=== PATIENT | female | born 1930 | race African-American/Black ===

== ENCOUNTER 2016-12-28 11:04 | Emergency (ER) | payer OTHER ==
[~2016-12-28] VITALS: Ht 149.9 cm; Wt 54.4 kg
[~2016-12-28 11:04] MED LIST: ARICEPT10 M1 PO; LEVOXYL50 MCG PO; NAPROSYN375 MG PO; NORVASC5 M1 PO; TYLENOL #31 TAB PO; XALATAN2.5 ML OPH
[2016-12-28 12:04] LABS: ABSOLUTE BASOPHIL COUNT 0 /CUMM (0.0-0.2); ABSOLUTE EOSINOPHIL COUNT 0.4 /CUMM (0.0-0.7); ABSOLUTE GRANULOCYTE CT 4.5 /CUMM (1.4-6.5); ABSOLUTE LYMPH COUNT 1.1 /CUMM (1.2-3.4); ABSOLUTE MONOCYTE COUNT 0.6 /CUMM (0.10-0.60); BASOPHIL % 0.3 % (0.0-2.0); EOSINOPHIL % 5.7 % (0-5); GRANULOCYTE % 67.9 % (42.2-75.2); HEMATOCRIT 39.7 % (37-47); MEAN CORPUSCULAR HGB 29.1 PG (27.0-31.0); MEAN CORPUSCULAR HGB CONC 32.7 G/DL (33.0-37.0); MEAN CORPUSCULAR VOLUME 89.1 FL (81.0-99.0); MEAN PLATELET VOLUME 10.4 FL (7.4-10.4); PLATELET COUNT 142 /CUMM (130-400); RBC DISTRIBUTION WIDTH 13.5 % (11.5-14.5); RED BLOOD CELL CT 4.46 /CUMM (4.20-5.40); WHITE BLOOD CELL COUNT 6.7 /CUMM (4.8-10.8)
--- NOTE | 2016-12-28 12:04 | ED GI/GU/ABDOMINAL COMPLAINT ---
History of Present Illness General Chief Complaint: General Adult Stated Complaint: DAUGHER STATES PT TOOK OVERDOSE OF TYLENOL Source: patient Exam Limitations: no limitations Vital Signs & Intake/Output Vital Signs & Intake/Output Vital Signs Date Time Temp Pulse Resp B/P B/P Pulse O2 O2 Flow FiO2 Mean Ox Delivery Rate 12/28 1150 97 12/28 1109 96.7 60 16 114/74 97 Room Air Allergies Coded Allergies: Penicillins (UNKNOWN 12/28/16) Reconcile Medications Amlodipine (Norvasc 5MG Tab) 5 MG TABLET 1 TAB PO DAILY HTN (Reported) Donepezil Hyrochloride (Aricept 5MG Tab) 5 MG TABLET 1 TAB PO QPM DEMENTIA ( Reported) Latanoprost (Xalatan 0.005% 2.5 Ml) 0.005 % DROPS 1 GTT OPH QPM EYE (Reported ) Levothyroxine Sodium 50 MCG TABLET 1 TAB PO QAM HYPOTHYROID (Reported) Meloxicam (Mobic) 15 MG TABLET 1 TAB PO DAILY PRN PAIN Naproxen (Naprosyn) 375 MG TABLET 1 TAB PO BID PRN PAIN with food Triage Note: PT HAS DEMENTIA AND DGT THINKS SHE TOOK A BUNCH OF TYLENOL BECAUSE SHE HAS ARTHRTIS IN HER ARM. Triage Nurses Notes Reviewed? yes ? N Is pt currently ? No HPI: This patient is an 86-year-old female with past medical history including dementia who is brought into the emergency department today by her daughter for evaluation of possible Tylenol overdose and abdominal pain. The patient's daughter reported that she thinks that last night this patient took, "a lot of Tylenol because her arm hurt where the arthritis is." She reported that she did not witness the patient taking Tylenol and does not know if the bottle was open or closed prior to last night. She reported that she thinks that she took too many Tylenol because this morning she was complaining of abdominal pain. The patient is denying any abdominal pain at this time. When I asked the daughter what the patient told her about the abdominal pain this morning, she reported, "I don't remember. She told me about the abdominal pain and described to me this morning, but I don't remember what she said." She told me that she gave the patient 2 capsules of charcoal and baking soda to try to get the patient to vomit, but the patient did not vomit. The patient has not had any fevers or diarrhea. The patient is denying any chest pain or difficulty breathing. She reported, "I think I just have a nervous stomach." (MIKAELA JUAN PA-C) Past History Travel History Traveled to [place] past 21 day No Medical History Any Pertinent Medical History? 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 No (MIKAELA JUAN PA-C) Review of Systems Review of Systems Constitutional: Reports: no symptoms. EENTM: Reports: no symptoms. Respiratory: Reports: no symptoms. Cardiovascular: Reports: no symptoms. GI: Reports: see HPI. Genitourinary: Reports: no symptoms. Musculoskeletal: Reports: see HPI. Skin: Reports: no symptoms. Neurological/Psychological: Reports: no symptoms. All Other Systems: Reviewed and Negative (MIKAELA JUAN PA-C) Physical Exam Physical Exam Gastrointestinal: normal bowel sounds, soft, no organomegaly, NONDISTENDED.EPIGASTRIC TENDERNESS. nO REBOUND OR GUARDING. nO mCbURNEY'S POINT TENDERNESS. nEGATIVE Calixto SIGN. nO MASSES APPRECIATED Comments: Well-developed well-nourished person in no acute distress HEENT: Normal EENT exam, head normocephalic, moist mucous membranes Pupils equally round and reactive to light. Neck: Supple, no lymphadenopathy Back: Normal inspection Cardiovascular: Regular rate and rhythm with no murmurs, rubs, or gallops Respiratory: Chest nontender. No respiratory distress. Breath sounds clear to auscultation bilaterally Extremity: Normal equal pulses Neuro: Alert oriented x3, cranial nerves II through XII grossly intact. Skin: No appreciable rash on exposed skin, skin is warm and dry. Psych: Mood and affect is normal Core Measures ACS in differential dx? Yes Severe Sepsis Present: No Septic Shock Present: No (MIKAELA JUAN PA-C) Progress Differential Diagnosis: AAA, AMI, appendicitis, biliary colic, bowel obstruction , colon cancer, cholecystitis, diverticulitis, gastritis, hepatitis, ischemic bowel, inflamm bowel dis, kidney stone, pancreatitis, PID/cervicitis, PUD/GERD, perforated viscous, UTI/pyelo Diagnostic Imaging: Viewed by Me: CT Scan. Discussed w/RAD: CT Scan. Radiology Impression: PATIENT: JOSE G BARROW PRESENT AGE: 86 PATIENT ACCOUNT NO: [id number] : 29 LOCATION: [facility] ORDERING PHYSICIAN: MIKAELA JUAN PA-C SERVICE DATE: 12/28/16 EXAM TYPE: CAT - CT ABD & PELVIS W/O IV CONTRAS EXAMINATION: CT ABDOMEN AND PELVIS WITHOUT CONTRAST CLINICAL INFORMATION: Abdominal pain. Evaluate for acute intra- abdominal process. COMPARISON: CT of abdomen and pelvis from 01/14/2014 TECHNIQUE: Multidetector volumetric imaging was performed from the superior aspect of the liver through the pubic symphysis. Sagittal and coronal reformatted images were obtained on the technologist's workstation. DLP: 272 mGy -cm FINDINGS: LUNG BASES: No acute findings in the examined lung bases. A tubular shaped, branching opacity in the lateral segment of the right middle lobe extending to the major fissure was not included in the [id number] on 08/2014. This has the appearance of mucus plugging within a dilated bronchus. Minimal atelectasis is present in the dependent aspect of each lower lobe. Mild atherosclerotic calcification of coronary arteries and thoracic aorta. No pericardial or pleural effusion. LIVER, GALLBLADDER, AND BILIARY TREE: The liver is normal in size, shape, and attenuation. No focal hepatic lesion or biliary ductal dilatation. The gallbladder is unremarkable with no evidence of radiopaque gallstones, gallbladder wall thickening, or pericholecystic inflammatory changes. PANCREAS: Unremarkable. SPLEEN: Unremarkable. ADRENAL GLANDS: Unremarkable. KIDNEYS AND URETERS: Kidneys have normal size, cortical thickness and attenuation. No evidence of nephrolithiasis or hydronephrosis. Note that there is developmental lack of medial rotation of the right kidney. The ureters are normal in caliber. BLADDER: Unremarkable. GASTROINTESTINAL TRACT : Loops of bowel are normal in caliber. Appendix is normal. No pericolonic fat stranding or focal bowel wall thickening. No ascites or pneumoperitoneum. ABDOMINAL WALL: Small fat-containing umbilical hernia is unchanged compared to 01/14/2014. Postsurgical scarring in the midline of the lower abdominal wall. LYMPH NODES: No pathologic sized lymph nodes within the abdomen or pelvis. VASCULAR: Mild atherosclerotic calcification of the abdominal aorta and iliac arteries without aneurysm. PELVIC VISCERA: Status post hysterectomy. No evidence of pelvic soft tissue mass or free fluid. 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 No acute fracture or malalignment in the examined spine. No aggressive osseous lesions. Apparent chronic hamstring tendinosis and enthesopathy at the ischial tuberosities. Chondrocalcinosis at the degenerated pubic symphysis. Mild osteoarthritis of the hips. IMPRESSION: No acute imaging abnormalities in the abdomen or pelvis compared to 01/14/2014. No evidence of urolithiasis or urinary tract obstruction. Appendix is normal. DICTATED BY: GEMA ARITA MD DATE/TIME DICTATED:12/28/161327 LIGHTING DESIGNER:ARCENIO DATE/TIME TRANSCRIBED:1327 CONFIDENTIAL, DO NOT COPY WITHOUT APPROPRIATE AUTHORIZATION. < Electronically signed in Other Vendor System> SIGNED BY: GEMA ARITA MD 12/28/16 1341 Initial ED EKG: none Comments: 12/28/2016 12:36:00 PM: Dr. Montejo was at the patient's bedside for face to face evaluation. I updated the patient and her daughter on the results of the laboratory studies. No acetaminophen or salicylate levels detected in the blood. The patient's daughter is requesting a CT scan due to the patient stated abdominal pain earlier. (DRAKE NICHOLSON,MIKAELA) Plan of Care: Orders Procedure Date/time Status THYROID STIMULATING HORMONE 12/28 1140 Complete ACETOMINOPHEN 12/28 1130 Complete SALICYLATE 12/28 1130 Complete COMPREHENSIVE METABOLIC PANEL 12/28 1130 Complete CBC WITHOUT DIFFERENTIAL 12/28 1130 Complete Laboratory Tests 12/28/16 1148: TSH Cancelled 12/28/16 1140: Anion Gap 11, Estimated GFR > 60, BUN/Creatinine Ratio 13.8, Glucose 95, Calcium 9.5, Total Bilirubin 0.6, AST 17, ALT 21, Alkaline Phosphatase 65, Total Protein 7.2, Albumin 3.7, Globulin 3.5, Albumin/Globulin Ratio 1.1, TSH 1.700, CBC w Diff NO MAN DIFF REQ, RBC 4.46, MCV 89.1, MCH 29.1, RDW 13.5, MPV 10.4, Gran % 67.9, Lymphocytes % 16.4 L, Monocytes % 9.7 H, Eosinophils % 5.7 H, Basophils % 0.3, Absolute Granulocytes 4.5, Absolute Lymphocytes 1.1 L, Absolute Monocytes 0.6, Absolute Eosinophils 0.4, Absolute Basophils 0, PUBS MCHC 32.7 L , Salicylates < 1.0, Acetaminophen < 10.0 L Departure Departure Disposition: HOME OR SELF CARE Condition: Stable Clinical Impression Primary Impression: Abdominal pain Qualifiers: Abdominal location: unspecified location Qualified Code: R10.9 - Unspecified abdominal pain Referrals: SUDHA SALGADO,JAMA RANDALL MD,FOSTER Alcantar (PCP/Family) Additional Instructions: Take medication for pain as prescribed. Do not mix this medication with another anti-inflammatory such as ibuprofen, Advil, Aleve, or naproxen. Please call to schedule a follow-up appointment with your primary care physician. Return for any worsening symptoms or concerns. Departure Forms: Customer Survey General Discharge Information Prescriptions: Current Visit Scripts Meloxicam (Mobic) 1 TAB PO DAILY PRN PAIN #10 TAB (DRAKE NICHOLSON,MIKAELA) PA/LOOKBACK COORDINATOR Co-Sign Statement Statement: ED Attending supervision documentation- [X] I saw and evaluated the patient. I have also reviewed all the pertinent lab results and diagnostic results. I agree with the findings and the plan of care as documented in the PA's/LOOKBACK COORDINATOR's documentation. [] I have reviewed the ED Record and agree with the PA's/LOOKBACK COORDINATOR's documentation. [] Additions or exceptions (if any) to the PAs/LOOKBACK COORDINATOR's note and plan are summarized below: [] (RO SALGADO,RACHELLE Wesley)
--- NOTE | 2016-12-28 13:41 | CT SCAN REPORT ---
EXAMINATION: CT ABDOMEN AND PELVIS WITHOUT CONTRAST CLINICAL INFORMATION: Abdominal pain. Evaluate for acute intra-abdominal process. COMPARISON: CT of abdomen and pelvis from 01/14/2014 TECHNIQUE: Multidetector volumetric imaging was performed from the superior aspect of the liver through the pubic symphysis. Sagittal and coronal reformatted images were obtained on the technologist's workstation. DLP: 272 mGy-cm FINDINGS: LUNG BASES: No acute findings in the examined lung bases. A tubular shaped, branching opacity in the lateral segment of the right middle lobe extending to the major fissure was not included in the [id number] on 01/14/2014. This has the appearance of mucus plugging within a dilated bronchus. Minimal atelectasis is present in the dependent aspect of each lower lobe. Mild atherosclerotic calcification of coronary arteries and thoracic aorta. No pericardial or pleural effusion. LIVER, GALLBLADDER, AND BILIARY TREE: The liver is normal in size, shape, and attenuation. No focal hepatic lesion or biliary ductal dilatation. The gallbladder is unremarkable with no evidence of radiopaque gallstones, gallbladder wall thickening, or pericholecystic inflammatory changes. PANCREAS: Unremarkable. SPLEEN: Unremarkable. ADRENAL GLANDS: Unremarkable. KIDNEYS AND URETERS: Kidneys have normal size, cortical thickness and attenuation. No evidence of nephrolithiasis or hydronephrosis. Note that there is developmental lack of medial rotation of the right kidney. The ureters are normal in caliber. BLADDER: Unremarkable. GASTROINTESTINAL TRACT: Loops of bowel are normal in caliber. Appendix is normal. No pericolonic fat stranding or focal bowel wall thickening. No ascites or pneumoperitoneum. ABDOMINAL WALL: Small fat-containing umbilical hernia is unchanged compared to 01/14/2014. Postsurgical scarring in the midline of the lower abdominal wall. LYMPH NODES: No pathologic sized lymph nodes within the abdomen or pelvis. VASCULAR: Mild atherosclerotic calcification of the abdominal aorta and iliac arteries without aneurysm. PELVIC VISCERA: Status post hysterectomy. No evidence of pelvic soft tissue mass or free fluid. 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 No acute fracture or malalignment in the examined spine. No aggressive osseous lesions. Apparent chronic hamstring tendinosis and enthesopathy at the ischial tuberosities. Chondrocalcinosis at the degenerated pubic symphysis. Mild osteoarthritis of the hips. IMPRESSION: No acute imaging abnormalities in the abdomen or pelvis compared to 01/14/2014. No evidence of urolithiasis or urinary tract obstruction. Appendix is normal.
[2016-12-28] MEDS ORDERED: MOBIC15 M1 PO (13:48)
[2016-12-28 14:08] VITALS: BP 149/71
== END 2016-12-28 14:19 ==
LOC: ERH 11:04
PROVIDERS: Physician Assistant Medical
DX: R10.13 Epigastric pain (principal); I10 Essential (primary) hypertension; F03.90 Unspecified dementia, unspecified severity, without behavioral disturbance, psychotic disturbance, mood disturbance, and anxiety
CPT/HCPCS: 74176; 96374; G0480; J0131

== ENCOUNTER 2017-02-18 11:07 | Inpatient (IN) | payer OTHER ==
[~2017-02-18] VITALS: Ht 149.9 cm; Wt 53.5 kg
[~2017-02-18 11:07] MED LIST changes: +MOBIC15 M1 PO
--- NOTE | 2017-02-18 11:26 | ED GENERAL ADULT ---
History of Present Illness General Chief Complaint: Abdominal Pain/Flank Pain Stated Complaint: ABD PAIN,NVD Source: patient Exam Limitations: no limitations Vital Signs & Intake/Output Vital Signs & Intake/Output Vital Signs Date Time Temp Pulse Resp B/P B/P Pulse O2 O2 Flow FiO2 Mean Ox Delivery Rate 02/18 1851 64 16 102/58 97 Room Air 02/18 1732 51 14 92/50 97 Room Air 02/18 1406 97.3 56 18 123/60 96 Room Air 02/18 1253 Room Air 02/18 1159 97.2 50 20 111/56 97 Room Air Allergies Coded Allergies: No Known Allergies (02/18/17) Reconcile Medications Amlodipine Besylate (Norvasc) 5 MG TABLET 1 TAB PO DAILY HTN (Reported) Brimonidine Tartrate/Timolol (Combigan Eye Drops) 0.2 %-0.5 % DROPS 1 DROP OP BID EYE (Reported) Donepezil HCl (Aricept) 10 MG TABLET 1 TAB PO QPM DEMENTIA (Reported) Escitalopram Oxalate 20 MG TABLET 1 TAB PO DAILY DEPRESSION (Reported) Latanoprost (Xalatan) 0.005 % DROPS 1 GTT OPH QPM EYE (Reported) Levothyroxine Sodium (Levoxyl) 50 MCG TABLET 1 TAB PO DAILY AC THYROID ( Reported) Meloxicam (Mobic) 15 MG TABLET 1 TAB PO DAILY PRN PAIN Triage Nurses Notes Reviewed? yes Onset: Abrupt Duration: minute(s): Timing: recent history HPI: 02/18/17 12:19 pm 87-year-old female presents to the emergency department status post episode of abdominal pain and weakness. According to the daughter the patient has a history of dementia. She was at a post office today and learned that a friend had . Suddenly she became nauseous and complained of abdominal pain. The daughter says that she's not been feeling well for the past several days. Her EKG done on arrival revealed sinus bradycardia in the 40s. She was placed on a monitor. Labs were ordered. The onset of the symptoms were abrupt, the duration was just today, the severity is significant; as his symptoms required her to come to the emergency department for care. Past History Medical History Any Pertinent Medical History? 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 No Review of Systems Review of Systems Constitutional: Denies: fever. EENTM: Denies: visual changes. Respiratory: Denies: short of breath. Cardiovascular: Denies: chest pain. GI: Reports: abdominal pain. Genitourinary: Reports: no symptoms. Musculoskeletal: Reports: no symptoms. Skin: Denies: rash. Neurological/Psychological: Reports: dementia. Hematologic/Endocrine: Denies: bruising, bleeding. Physical Exam Physical Exam General Appearance: alert, awake, anxious, mild distress Head: atraumatic, normal appearance Eyes: Bilateral: normal appearance, PERRL, EOMI. Ears, Nose, Throat: normal ENT inspection Neck: normal inspection, supple Respiratory: no respiratory distress Cardiovascular: bradycardia Peripheral Pulses: 3+ brachial (L), 3+ radial (R) Gastrointestinal: non-tender Back: decreased range of motion Extremities: no edema Neurologic/Psych: awake, alert, confused Skin: intact, normal color, warm/dry Core Measures ACS in differential dx? Yes CVA/TIA Diagnosis: No Severe Sepsis Present: No Septic Shock Present: No Progress Differential Diagnoses I considered the following diagnoses in my evaluation of the patient: [Lyme disease, sick sinus syndrome, acute coronary syndrome, adverse drug reaction] Plan of Care: Orders Procedure Date/time Status Heart Healthy Diet 02/19 B Active Admit to inpatient 02/19 1944 Active Vital Signs 02/18 194 Active Code Status 02/18 194 Active TROPONIN LEVEL 02/18 1707 Complete EKG 02/18 1707 Active URINALYSIS 02/18 1503 Complete Add-on Test (ER Only) 02/18 1221 Active THYROID STIMULATING HORMONE 02/18 1145 Complete TOTAL TRIODOTHYROXINE 02/18 1145 Complete THYROXINE 02/18 1145 Complete Telemetry/Biogeographer 02/18 1135 Active TROPONIN LEVEL 02/18 1135 Complete COMPREHENSIVE METABOLIC PANEL 02/18 1135 Complete CBC WITHOUT DIFFERENTIAL 02/18 1135 Complete AMYLASE 02/18 1135 Complete EKG 02/18 1109 Active Laboratory Tests 02/18/17 1726: Troponin I < 0.01 02/18/17 1505: Urine Color YEL, Urine Clarity CLEAR, Urine pH 7.5, Ur Specific [place] 1.010, Urine Protein NEG, Urine Ketones NEG, Urine Nitrite NEG, Urine Bilirubin NEG, Urine Urobilinogen 0.2, Ur Leukocyte Esterase NEG, Ur Microscopic EXAM NOT REQUIRED, Urine Hemoglobin NEG, Urine Glucose NEG 02/18/17 1225: Anion Gap 6, Estimated GFR > 60, BUN/Creatinine Ratio 18.6, Glucose 89, Calcium 8.4, Total Bilirubin 0.4, AST 14, ALT 33, Alkaline Phosphatase 42, Troponin I < 0.01, Total Protein 5.6 L, Albumin 2.8 L, Globulin 2.8, Albumin/Globulin Ratio 1.0 L, Amylase 184 H, TSH 0.340, Thyroxine (T4) 6.6, Total T3 0.90 L 02/18/17 1145: CBC w Diff MAN DIFF ORDERED, RBC 4.03 L, MCV 87.9, MCH 29.2, RDW 13.8, MPV 10.7 H, Gran % 59.6, Lymphocytes % 21.4, Monocytes % 10.5 H, Eosinophils % 8.2 H, Basophils % 0.3, Absolute Granulocytes 3.6, Absolute Lymphocytes 1.3, Absolute Monocytes 0.6, Absolute Eosinophils 0.5, Absolute Basophils 0, Platelet Estimate VERIFIED BY SMEAR, Normocytic RBCs VERIFIED, Normochromic RBCs VERIFIED, PUBS MCHC 33.2 Initial ED EKG: sinus bradycardia Repeat EKG: changed (new t wave inversions) Departure Departure Disposition: STILL A PATIENT Condition: Stable Clinical Impression Primary Impression: Bradycardia Secondary Impressions: Acute electrocardiogram changes, Hypotension, Near syncope, Weakness Referrals: TONIA SALGADO,FOSTER Alcantar (PCP/Family) Departure Forms: Customer Survey General Discharge Information Comments PATIENT: JOSE G BARROW PRESENT AGE: 87 PATIENT ACCOUNT NO: [id number] : 29 LOCATION: [facility] ORDERING PHYSICIAN: RACHELLE GONZALEZ DO SERVICE DATE: 02/18/17 EXAM TYPE: CAT - CT ABD & PELVIS W IV CONTRAST EXAMINATION: CT ABDOMEN AND PELVIS WITH CONTRAST CLINICAL INFORMATION: Abdominal pain. Clinical concern for diverticulitis. COMPARISON: 12/28/2016 and 01/14/2014 TECHNIQUE: Multidetector volumetric imaging was performed of the abdomen and pelvis before and after the IV administration of 95 mL of Optiray 320 intravenous contrast. Sagittal and coronal reformatted images were obtained on the technologist's workstation. DLP: 275.21 mGy-cm FINDINGS: LUNG BASES: The visualized lung bases are unremarkable. LIVER, GALLBLADDER, AND BILIARY TREE: The liver is normal in size, shape, and attenuation. No focal hepatic lesion or biliary ductal dilatation is present. The gallbladder is unremarkable with no evidence of radiopaque gallstones, gallbladder wall thickening, or obvious pericholecystic inflammatory changes. PANCREAS: Borderline prominence of the main pancreatic duct at 3 mm without focal pancreatic mass. No evidence of pancreatitis. SPLEEN: Unremarkable. ADRENAL GLANDS: Unremarkable. KIDNEYS AND URETERS: There is mild uniform cortical thinning bilaterally. The collecting systems are full bilaterally consistent with mild hydronephrosis. This is a new finding compared to the prior exam. Both ureters are mildly prominent. No ureteral calculi. The bladder is distended. Suspect reflux. BLADDER: Distended with urine. No mass or calculi. GASTROINTESTINAL TRACT: The visualized esophagus is normal. The stomach is decompressed. The small bowel is normal in caliber. Mesenteric vessels enhance normally without adenopathy. The terminal ileum is normal in appearance. Normal appendix in the right lower quadrant. Moderate fecal residue throughout the colon. Redundant sigmoid colon. No diverticulosis. No diverticulitis. No free air. No free fluid. ABDOMINAL WALL: Small stable umbilical hernia. Postsurgical changes in the lower infraumbilical abdominal wall. LYMPH NODES: Normal. VASCULAR: Moderate atherosclerotic peripheral vascular disease and a normal caliber abdominal aorta. Circumaortic left renal vein, an anatomic variant. No retroperitoneal collection. PELVIC VISCERA: The patient is status post hysterectomy. No adnexal masses. No free fluid or lymphadenopathy. OSSEOUS STRUCTURES: Degenerative spine disease. No compression deformity. No malalignment. IMPRESSION: Moderate stool throughout the large bowel. No diverticulosis. No evidence of colitis. Mild bilateral hydronephrosis and bilateral hydroureter. The bladder is distended and this may represent reflux. No renal calculi. Borderline prominence of the pancreatic duct. No evidence for pancreatitis. DICTATED BY: ELLIE FITZPATRICK MD DATE/TIME DICTATED:02/18/171335 FILLER LEAF CUTTER LONG:ARCENIO DATE/TIME TRANSCRIBED:02/18/171335 CONFIDENTIAL, DO NOT COPY WITHOUT APPROPRIATE AUTHORIZATION. <Electronically signed in Other Vendor System> SIGNED BY: ELLIE FITZPATRICK MD 02/18/17 7355 Admission Note Spoke With: ANGELINE SALGADO PhD,KAMRAN Nieves Documentation of Exam: Documentation of any treatments & extenuating circumstances including Concerns Regarding Discharge (functional status, medication knowledge or non-compliance, living conditions, etc.) that warrant an admission rather than observation: [The patient needs admission for cardiac monitoring, inpatient echocardiogram, monitoring heart rate. She has symptomatic bradycardia. She status post hypotension. We will hold the Aricept and evaluate the response] CT scan of the abdomen and pelvis listed belowIMPRESSION: Moderate stool throughout the large bowel. No diverticulosis. No evidence of colitis. Mild bilateral hydronephrosis and bilateral hydroureter. The bladder is distended and this may represent reflux. No renal calculi. Borderline prominence of the pancreatic duct. No evidence for pancreatitis. DICTATED BY: ELLIE FITZPATRICK MD DATE/TIME DICTATED:02/18/171335 FILLER LEAF CUTTER LONG:ARCENIO DATE/TIME TRANSCRIBED:02/18/171335 CONFIDENTIAL, DO NOT COPY WITHOUT APPROPRIATE AUTHORIZATION. <Electronically signed in Other Vendor System> SIGNED BY: ELLIE FITZPATRICK MD 02/18/17 4980 Critical Care Note Critical Care Note Critical Care Time: 30-74 min
--- NOTE | 2017-02-18 11:53 | NUR ---
IV EST #20 LH BLOOD DRAWN AND SENT TO THE LAB [facility]
--- NOTE | 2017-02-18 11:58 | NUR ---
Pt presents to ER with family memeber who states patient recieved notice that her neighbor and then suddenly developed stomach pain. pt has no complaints on arrival. pt has a hx of seasonal allergies and dementia
[2017-02-18 12:04] LABS: ABSOLUTE BASOPHIL COUNT 0 /CUMM (0.0-0.2); ABSOLUTE EOSINOPHIL COUNT 0.5 /CUMM (0.0-0.7); ABSOLUTE GRANULOCYTE CT 3.6 /CUMM (1.4-6.5); ABSOLUTE LYMPH COUNT 1.3 /CUMM (1.2-3.4); ABSOLUTE MONOCYTE COUNT 0.6 /CUMM (0.10-0.60); BASOPHIL % 0.3 % (0.0-2.0); EOSINOPHIL % 8.2 % (0-5); GRANULOCYTE % 59.6 % (42.2-75.2); HEMATOCRIT 35.4 % (37-47); MEAN CORPUSCULAR HGB 29.2 PG (27.0-31.0); MEAN CORPUSCULAR HGB CONC 33.2 G/DL (33.0-37.0); MEAN CORPUSCULAR VOLUME 87.9 FL (81.0-99.0); MEAN PLATELET VOLUME 10.7 FL (7.4-10.4); PLATELET COUNT 159 /CUMM (130-400); RBC DISTRIBUTION WIDTH 13.8 % (11.5-14.5); RED BLOOD CELL CT 4.03 /CUMM (4.20-5.40)
[2017-02-18] MEDS ORDERED: ESCITALOPRAM OX20 MG PO (12:10)
[2017-02-18] MEDS ORDERED: COMBIGAN EYE DRO5 ML OP (12:14)
--- NOTE | 2017-02-18 12:27 | NUR ---
LABS DRAWN AND SENT BY THIS [facility] BLUE, SST, HURT
--- NOTE | 2017-02-18 15:06 | NUR ---
URINE TRIO SENT BY THIS [facility]
--- NOTE | 2017-02-18 15:07 | CT SCAN REPORT ---
EXAMINATION: CT ABDOMEN AND PELVIS WITH CONTRAST CLINICAL INFORMATION: Abdominal pain. Clinical concern for diverticulitis. COMPARISON: 12/28/2016 and 01/14/2014 TECHNIQUE: Multidetector volumetric imaging was performed of the abdomen and pelvis before and after the IV administration of 95 mL of Optiray 320 intravenous contrast. Sagittal and coronal reformatted images were obtained on the technologist's workstation. DLP: 275.21 mGy-cm FINDINGS: LUNG BASES: The visualized lung bases are unremarkable. LIVER, GALLBLADDER, AND BILIARY TREE: The liver is normal in size, shape, and attenuation. No focal hepatic lesion or biliary ductal dilatation is present. The gallbladder is unremarkable with no evidence of radiopaque gallstones, gallbladder wall thickening, or obvious pericholecystic inflammatory changes. PANCREAS: Borderline prominence of the main pancreatic duct at 3 mm without focal pancreatic mass. No evidence of pancreatitis. SPLEEN: Unremarkable. ADRENAL GLANDS: Unremarkable. KIDNEYS AND URETERS: There is mild uniform cortical thinning bilaterally. The collecting systems are full bilaterally consistent with mild hydronephrosis. This is a new finding compared to the prior exam. Both ureters are mildly prominent. No ureteral calculi. The bladder is distended. Suspect reflux. BLADDER: Distended with urine. No mass or calculi. GASTROINTESTINAL TRACT: The visualized esophagus is normal. The stomach is decompressed. The small bowel is normal in caliber. Mesenteric vessels enhance normally without adenopathy. The terminal ileum is normal in appearance. Normal appendix in the right lower quadrant. Moderate fecal residue throughout the colon. Redundant sigmoid colon. No diverticulosis. No diverticulitis. No free air. No free fluid. ABDOMINAL WALL: Small stable umbilical hernia. Postsurgical changes in the lower infraumbilical abdominal wall. LYMPH NODES: Normal. VASCULAR: Moderate atherosclerotic peripheral vascular disease and a normal caliber abdominal aorta. Circumaortic left renal vein, an anatomic variant. No retroperitoneal collection. PELVIC VISCERA: The patient is status post hysterectomy. No adnexal masses. No free fluid or lymphadenopathy. OSSEOUS STRUCTURES: Degenerative spine disease. No compression deformity. No malalignment. IMPRESSION: Moderate stool throughout the large bowel. No diverticulosis. No evidence of colitis. Mild bilateral hydronephrosis and bilateral hydroureter. The bladder is distended and this may represent reflux. No renal calculi. Borderline prominence of the pancreatic duct. No evidence for pancreatitis.
--- NOTE | 2017-02-18 16:27 | NUR ---
PT PROVIDEED WITH DINNER TRAY PER DR GONZALEZ. PER PT DAUGHTER AT BEDSIDE, SHE SAYS HER MOM IS MUCH BETTER. PT WANTS TO GO HOME DR GONZALEZ AWARE
--- NOTE | 2017-02-18 19:05 | NUR ---
DR MARCUS AT BEDSIDE FOR EVALUAITON AND CONSULT
--- NOTE | 2017-02-18 19:22 | Cons- Cardiology ---
General Information and HPI Consulting Request Date of Consult: 02/18/17 Requested By: er History of Present Illness: Nataliia Toro is an 87 year old female with history of hypertension, hypothyroidism, dementia and syncope. She was brought to the ER for evaluation of abdominal pain , nausea and weakness and was noted to be bradycardic with a heart rate in the 40's. The patient has a poor memory but denies any chest discomfort, shortness of breath, lightheadedness or palpitations and truthfully does not know why she is in the ER. In the ER she was noted to have an increased amylase along with a low TSH and low T3. Allergies/Medications Allergies: Coded Allergies: No Known Allergies (02/18/17) Home Med List: Amlodipine Besylate (Norvasc) 5 MG TABLET 1 TAB PO DAILY HTN (Reported) Brimonidine Tartrate/Timolol (Combigan Eye Drops) 0.2 %-0.5 % DROPS 1 DROP OP BID EYE (Reported) Donepezil HCl (Aricept) 10 MG TABLET 1 TAB PO QPM DEMENTIA (Reported) Escitalopram Oxalate 20 MG TABLET 1 TAB PO DAILY DEPRESSION (Reported) Latanoprost (Xalatan) 0.005 % DROPS 1 GTT OPH QPM EYE (Reported) Levothyroxine Sodium (Levoxyl) 50 MCG TABLET 1 TAB PO DAILY AC THYROID ( Reported) Meloxicam (Mobic) 15 MG TABLET 1 TAB PO DAILY PRN PAIN Review of Systems Review of Systems: A review of systems could not be reliably obtained. 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 Surgical History Surgical History: , hysterectomy Psychosocial History Services at Home: None Exam & Diagnostic Data Vital Signs and I&O Vital Signs Date Time Temp Pulse Resp B/P B/P Pulse O2 O2 Flow FiO2 Mean Ox Delivery Rate 02/18 1851 64 16 102/58 97 Room Air 02/18 1732 51 14 92/50 97 Room Air 02/18 1406 97.3 56 18 123/60 96 Room Air 02/18 1253 Room Air 02/18 1159 97.2 50 20 111/56 97 Room Air Intake & Output 02/18 1600 02/18 0800 02/18 0000 02/17 1600 02/17 0800 02/17 0000 Intake Total Output Total Balance Patient 118 lb Weight Physical Exam: General: WD/ WN female in NAD; awake and responsive HEENT: NC/ AT, PERRL, EOMI Neck: no JVD, no carotid bruit Heart: RRR w/o murmur Lungs: clear bilaterally Abdomen: soft, NT, +BS Extremities: no edema Assessment/Plan Assessment/Plan * This patient has intermittent bradycardia along with a history of prior syncope. She is also on levothyroxine for hypothyroidism and by her labs should probably have her dose slightly increased. My strongest suspicion is that her bradycardia is due to Aricept. Bradycardia is a common side effect of this medication. I recommend discontinuing Aricept with follow up in the office in a couple weeks. Consult Acknowledgment - Thank you for your consult request.
--- NOTE | 2017-02-18 20:38 | NUR ---
PT AMBULATED TO THE BATHROOM WITH STEADY GAIT.. DAUGHTER AT BEDSIDE
--- NOTE | 2017-02-18 22:43 | NUR ---
PT CHANGED AND PLACED BACK ON MONITOR. CALL STARR WITH IN REACH
--- NOTE | 2017-02-18 23:22 | NUR ---
PATIENT AWAKE, ALERT AND ORIENTED X 3, AMBULATORY TO BATHROOM W/ STABLE GAIT NOTED. DENIES ANY COMPLAINTS AT THIS TIME.
--- NOTE | 2017-02-18 23:54 | NUR ---
PATIENT NOTED W/ IV IN LEFT HAND DISLODGED. UNABLE TO FLUSH, NO BLOOD RETURN. IV SITE REMOVED. AT THIS TIME, NO BLEEDING NOTED. SPOKE W/ MD ROA REGARDING POC, AWAITING ADMISSION PROCESS. MD ROBERTSON PAGED BY MD ROA.
--- NOTE | 2017-02-19 00:15 | NUR ---
PATIENT AMBULATORY TO BATHROOM AGAIN AT THIS TIME W/ STABLE GAIT NOTED. NEW IV EST #22 LEFT FOREARM, SITE COVERED FOR PROTECTION. PATIENT FORGETFUL AT THIS TIME, REPORTS "I DON'T THINK I'VE BEEN THE THE BATHROOM IN A WHILE AND I DON'T WANT TO HAVE TO GET UP DURING THE NIGHT." REPLACED ON VASCULAR SONOGRAPHER.
--- NOTE | 2017-02-19 01:37 | History & Physical ---
J LUIS ANGKIMClementine 02/19/17 0137: General Information and HPI MD Statement: I have seen and personally examined JOSE G BARROW and documented this H&P. The patient is a 87 year old F who presented with a patient stated chief complaint of bradycardia Source of Information: family Exam Limitations: dementia History of Present Illness: 87 year old woman with pmh history of hypertension, hypothyroidism, dementia and history of syncope. Brought to ED for abdominal pain and nausea and found to be bradycardiac. Poor historian secondary to dementia. On interview she denied fevers, chills, dizziness, chestpain, recent tickbite or shortness of breath. Allergies/Medications Allergies: Coded Allergies: No Known Allergies (02/18/17) Home Med list Amlodipine Besylate (Norvasc) 5 MG TABLET 1 TAB PO DAILY HTN (Reported) Brimonidine Tartrate/Timolol (Combigan Eye Drops) 0.2 %-0.5 % DROPS 1 DROP OP BID EYE (Reported) Donepezil HCl (Aricept) 10 MG TABLET 1 TAB PO QPM DEMENTIA (Reported) Escitalopram Oxalate 20 MG TABLET 1 TAB PO DAILY DEPRESSION (Reported) Latanoprost (Xalatan) 0.005 % DROPS 1 GTT OPH QPM EYE (Reported) Levothyroxine Sodium (Levoxyl) 50 MCG TABLET 1 TAB PO DAILY AC THYROID ( Reported) Meloxicam (Mobic) 15 MG TABLET 1 TAB PO DAILY PRN PAIN Compliance With Home Meds: UNKNOWN Past History Travel History Traveled to [place] past 21 day No Medical History Neurological: dementia EENT: NONE Cardiovascular: hypertension Respiratory: NONE Gastrointestinal: NONE Hepatic: NONE Renal: NONE Musculoskeletal: ARTHRITIS Psychiatric: DEMENTIA Endocrine: hypothyroidism Blood Disorders: NONE Cancer(s): NONE 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 Cardiovascular: Denies: chest pain, edema, orthopena, palpitations, peripheral edema, syncope. Respiratory: Denies: cough, hemoptysis, orthopnea, short of breath, sputum production, stridor, wheezing. Genitourinary: Denies: discharge, dysuria, frequency, hematuria, hesitation, nocturia, pain, urgency. Exam & Diagnostic Data Last 24 Hrs of Vital Signs/I&O Vital Signs Date Time Temp Pulse Resp B/P B/P Pulse O2 O2 Flow FiO2 Mean Ox Delivery Rate 02/18 2259 97.9 52 18 124/60 96 Room Air 02/18 1851 64 16 102/58 97 Room Air 02/18 1732 51 14 92/50 97 Room Air 02/18 1406 97.3 56 18 123/60 96 Room Air 02/18 1253 Room Air 02/18 1159 97.2 50 20 111/56 97 Room Air Intake & Output 02/19 0800 02/19 0000 02/18 1600 Intake Total Output Total Balance Patient 118 lb 118 lb Weight Weight Reported by Patient Measurement Method Physical Exam General Appearance Alert, No Acute Distress Cardiovascular Regular Rate, Normal S1, Normal S2 Lungs Clear to Auscultation, Normal Air Movement Abdomen Normal Bowel Sounds, Soft Extremities No Edema, Normal Pulses Diagnostic Data EKG Results sinus bradycardia Other Results CT ABD & PELVIS W IV CONTRAST FINDINGS: LUNG BASES: The visualized lung bases are unremarkable. LIVER, GALLBLADDER, AND BILIARY TREE: The liver is normal in size, shape, and attenuation. No focal hepatic lesion or biliary ductal dilatation is present. The gallbladder is unremarkable with no evidence of radiopaque gallstones, gallbladder wall thickening, or obvious pericholecystic inflammatory changes. PANCREAS: Borderline prominence of the main pancreatic duct at 3 mm without focal pancreatic mass. No evidence of pancreatitis. SPLEEN: Unremarkable. ADRENAL GLANDS: Unremarkable. KIDNEYS AND URETERS: There is mild uniform cortical thinning bilaterally. The collecting systems are full bilaterally consistent with mild hydronephrosis. This is a new finding compared to the prior exam. Both ureters are mildly prominent. No ureteral calculi. The bladder is distended. Suspect reflux. BLADDER: Distended with urine. No mass or calculi. GASTROINTESTINAL TRACT: The visualized esophagus is normal. The stomach is decompressed. The small bowel is normal in caliber. Mesenteric vessels enhance normally without adenopathy. The terminal ileum is normal in appearance. Normal appendix in the right lower quadrant. Moderate fecal residue throughout the colon. Redundant sigmoid colon. No diverticulosis. No diverticulitis. No free air. No free fluid. ABDOMINAL WALL: Small stable umbilical hernia. Postsurgical changes in the lower infraumbilical abdominal wall. LYMPH NODES: Normal. VASCULAR: Moderate atherosclerotic peripheral vascular disease and a normal caliber abdominal aorta. Circumaortic left renal vein, an anatomic variant. No retroperitoneal collection. PELVIC VISCERA: The patient is status post hysterectomy. No adnexal masses. No free fluid or lymphadenopathy. OSSEOUS STRUCTURES: Degenerative spine disease. No compression deformity. No malalignment. IMPRESSION: Moderate stool throughout the large bowel. No diverticulosis. No evidence of colitis. Mild bilateral hydronephrosis and bilateral hydroureter. The bladder is distended and this may represent reflux. No renal calculi. Borderline prominence of the pancreatic duct. No evidence for pancreatitis. Assessment/Plan Assessment: 87 year old woman with pmh history of hypertension, hypothyroidism, dementia and history of syncope. Brought to ED for abdominal pain and nausea and found to be bradycardiac. Poor historian secondary to dementia. On interview she denied fevers, chills, dizziness, chestpain or shortness of breath. Prob list: bradycardia (possibly medication induced) Hypothroidism plan: admit to tele to [facility] for any heart blocks will increase dose of synthroid per cardio recomendation, asa and lexapro will hold aricept hold antihypertensive for low BP cardio to see in am dvt prophylaxis with sc lovenox full code As Ranked By This Provider Problem List: 1. Bradycardia Core Measures/Miscellaneous Acute Coronary Syndrome ACS Diagnosis: No Cerebrovascular Accident CVA/TIA Diagnosis: No Congestive Heart Failure CHF Diagnosis: No VTE (View Protocol) VTE Risk Factors: Age > 40 [facility] d/t: No contraindications No VTE Pharm Prophylaxis d/t: No contraindications VTE Diagnosis: No VTE Type: NONE VTE Confirmed by (Test): NONE Sepsis (View Protocol) Severe Sepsis Present: No Septic Shock Septic Shock Present: No Miscellaneous Documentation Attending Case Discussed With: ANGELINE SALGADO PhD,KAMRAN Nieves Primary Care Physician: FOSTER RANDALL MD Patient sees these Specialists Dr. Evans Level of Patient Care: Telemetry RAMON TANG MD 02/19/17 0148: Resident Review Statement Resident Statement: examined this patient, discussed with internal wholesaler, agreed with internal wholesaler Other Findings: 87 year old female with history of hypertension, hypothyroidism, dementia and syncope who presents with abdominal pain, nausea and weakness and was noted to be bradycardic with a heart rate in the 40's. She was admitted 2 years ago for syncope and was found to have sinus bradycardia at that time too. EKG-Sinus tachycardia, no ST changes Problem List 1. Sinus Bradycardia-likely related to Aricept 2. Hypothyroidism 3. HTN 4. Dementia Plan Admit to Telemetry for monitoring Check lyme titre Will increase dose of levothyroxine per cardiology Hold calcium channel blockers/Beta blockers for now Continue her other important meds Follow cardiology recommendations Heart healthy diet Pain pathway DVT ppx FC
--- NOTE | 2017-02-19 02:40 | NUR ---
NS INFUSING AT 50ML/HR PER EMAR. TOLERATING WELL. PATIENT CONTINUES TO SLEEP AT THIS TIME, AWOKE WHEN RN ENTERED ROOM, DENIES COMPLAINTS. HR:51 SINUS WALT ON MONITOR W/ PRESENCE OF P-WAVES, NO ECTOPY.
--- NOTE | 2017-02-19 02:57 | NUR ---
MICHAEL INITIATED AND JESSIKA.
[2017-02-19 06:38] LABS: ABSOLUTE BASOPHIL COUNT 0 /CUMM (0.0-0.2); ABSOLUTE EOSINOPHIL COUNT 0.5 /CUMM (0.0-0.7); ABSOLUTE LYMPH COUNT 1.7 /CUMM (1.2-3.4); ABSOLUTE MONOCYTE COUNT 0.8 /CUMM (0.10-0.60); BASOPHIL % 0.7 % (0.0-2.0); GRANULOCYTE % 49.3 % (42.2-75.2); MEAN CORPUSCULAR HGB 29.1 PG (27.0-31.0); MEAN CORPUSCULAR HGB CONC 32.6 G/DL (33.0-37.0); MEAN CORPUSCULAR VOLUME 89.3 FL (81.0-99.0); MEAN PLATELET VOLUME 9.7 FL (7.4-10.4); PLATELET COUNT 144 /CUMM (130-400); RBC DISTRIBUTION WIDTH 13.6 % (11.5-14.5); RED BLOOD CELL CT 4.15 /CUMM (4.20-5.40); WHITE BLOOD CELL COUNT 6.1 /CUMM (4.8-10.8)
[2017-02-19 06:39] VITALS: BP 145/70
--- NOTE | 2017-02-19 07:27 | NUR ---
ASSUMED CARE. SLEEPING AT PRESENT. SINUS BRADYCARDIA ON MONITOR, RATE 46-50.
--- NOTE | 2017-02-19 08:13 | NUR ---
OOB TO BATHROOM WITH ASSISTANCE, VOIDED IN TOILET. CONFUSED TO DATE, TIME, PLACE. EATING BREKFAST. DENIES PAIN.
--- NOTE | 2017-02-19 09:24 | NUR ---
PT TO ROOM 183 BED 1
--- NOTE | 2017-02-19 09:46 | NUR ---
MOSES GONZALEZ. PT INSISTED ON ADMINISTERING OWN EYE DROPS; ASSITED WITH BOTTLES.
--- NOTE | 2017-02-19 10:06 | NUR ---
REPORT TO ELIAS, (LUISA MELARA)
--- NOTE | 2017-02-19 11:02 | NUR ---
ADMISSION NOTE: PT ARRIVED TO UNIT AT 10:40 AM ON TELE MONITOR ACCOMPANIED BY EWA MELARA. ORIENTED TO ROOM AND CALL LIGHT. PLACED ON TELE MONITOR. PT NOTED TO BE IN SINUS BRADYCARDIA RATE 44-[address] RENETTA JENSEN. PT ALERT & CONFUSED. O2 SAT STABLE ON RA. NO S/S RESP DISTRESS. SKIN INTACT WITH NO EDEMA. #22 LFA WITH NS INFUSING PER MD ORDER. BED ALARM IN PLACE. WILL CONTINUE TO MONITOR.
[2017-02-19 11:22] VITALS: BP 126/56
--- NOTE | 2017-02-19 15:29 | PN- Cardiology ---
Subjective Subjective: The patient is comfortable currently. She complains of recent lightheadedness and dizziness. No chest pain. No palpitations. No diaphoresis. She is noted to be in sinus bradycardia on telemetry with heart rate in the low 40s for prolonged periods of time. Objective Vital Signs and I&Os Vital Signs Date Time Temp Pulse Resp B/P B/P Pulse O2 O2 Flow FiO2 Mean Ox Delivery Rate 02/19 1122 97.8 47 18 126/56 95 Room Air 02/19 0937 97.4 56 22 124/69 97 Room Air 02/19 0639 96.6 52 16 145/70 95 Room Air Room Air 02/18 2259 97.9 52 18 124/60 96 Room Air 02/18 1851 64 16 102/58 97 Room Air 02/18 1732 51 14 92/50 97 Room Air Intake & Output 02/19 1600 02/19 0800 02/19 0000 02/18 1600 02/18 0800 02/18 0000 Intake Total 680 Output Total Balance 680 Intake, IV 200 Intake, Oral 480 Patient 118 lb 118 lb Weight Weight Reported by Patient Measurement Method Physical Exam: Gen: NAD HEENT: normal Lungs: clear to auscultation, normal resp. effort Heart: RRR, S1, S2, no murmurs Abdomen: Soft, nontender, no masses Extremities: No clubbing, cyanosis, or edema. Neuro: Alert and oriented x 3, cranial nerves intact Current Medications: Current Medications Sig/Ana Start time Last Medication Dose Route Stop Time Status Admin Acetaminophen 650 MG Q6P PRN 02/19 0115 AC PO Acetaminophen 0 .STK-MED ONE 02/18 2002 DC PO Amlodipine Besylate 5 MG DAILY 02/19 1000 CAN PO Aspirin 81 MG DAILY 02/19 1000 AC 02/19 PO 0912 Aspirin 0 .STK-MED ONE 02/19 2128 DC PO Aspirin 81 MG ONCE ONE 02/18 2045 DC 02/18 PO 02/18 Brimonidine Tartrate 1 GTT BID 02/19 1000 AC 02/19 OPH 0943 Enoxaparin Sodium 40 MG DAILY 02/19 1000 AC 02/19 SC 0912 Escitalopram Oxalate 10 MG DAILY 02/19 1000 AC 02/19 PO 0912 Ibuprofen 0 .STK-MED ONE 02/18 2002 DC PO Latanoprost 1 GTT QPM 02/19 2200 AC OPH Levothyroxine Sodium 0.075 MG DAILY AC 02/19 0700 AC 02/19 PO 0812 Potassium Chloride 20 MEQ ONCE ONE 02/19 1215 DC 02/19 PO 02/19 1216 1333 Sodium Chloride 1,000 ML .Q20H 02/19 0115 AC 02/19 IV 0240 Sodium Chloride 1,000 ML ONCE ONE 02/18 1145 DC 02/18 IV 02/18 1824 1205 Timolol Maleate 1 GTT BID 02/19 1000 AC 02/19 OPH 0943 Results Last 48 Hrs of Labs/Mics: Laboratory Tests 02/19/17 0630: Anion Gap 9, Estimated GFR > 60, BUN/Creatinine Ratio 14.3, CBC w Diff NO MAN DIFF REQ, RBC 4.15 L, MCV 89.3, MCH 29.1, RDW 13.6, MPV 9.7, Gran % 49.3, Lymphocytes % 28.5, Monocytes % 12.5 H, Eosinophils % 9.0 H, Basophils % 0.7, Absolute Granulocytes 3.0, Absolute Lymphocytes 1.7, Absolute Monocytes 0.8 H, Absolute Eosinophils 0.5, Absolute Basophils 0, PUBS MCHC 32.6 L 02/18/17 1726: Troponin I < 0.01 02/18/17 1505: Urine Color YEL, Urine Clarity CLEAR, Urine pH 7.5, Ur Specific [place] 1.010, Urine Protein NEG, Urine Ketones NEG, Urine Nitrite NEG, Urine Bilirubin NEG, Urine Urobilinogen 0.2, Ur Leukocyte Esterase NEG, Ur Microscopic EXAM NOT REQUIRED, Urine Hemoglobin NEG, Urine Glucose NEG 02/18/17 1225: Anion Gap 6, Estimated GFR > 60, BUN/Creatinine Ratio 18.6, Glucose 89, Calcium 8.4, Total Bilirubin 0.4, AST 14, ALT 33, Alkaline Phosphatase 42, Troponin I < 0.01, Total Protein 5.6 L, Albumin 2.8 L, Globulin 2.8, Albumin/Globulin Ratio 1.0 L, Amylase 184 H, TSH 0.340, Thyroxine (T4) 6.6, Total T3 0.90 L, Lyme Disease Antibody Pending 02/18/17 1145: CBC w Diff MAN DIFF ORDERED, RBC 4.03 L, MCV 87.9, MCH 29.2, RDW 13.8, MPV 10.7 H, Gran % 59.6, Lymphocytes % 21.4, Monocytes % 10.5 H, Eosinophils % 8.2 H, Basophils % 0.3, Absolute Granulocytes 3.6, Absolute Lymphocytes 1.3, Absolute Monocytes 0.6, Absolute Eosinophils 0.5, Absolute Basophils 0, Platelet Estimate VERIFIED BY SMEAR, Normocytic RBCs VERIFIED, Normochromic RBCs VERIFIED, PUBS MCHC 33.2 Assessment/Plan Assessment/Plan Assessment: 1. Hypertension 2. Hypothyroidism 3. Dementia 4. History of syncope 5. Sinus bradycardia, possibly symptomatic Plan: * The patient remains significantly bradycardic, with heart rates in the low 40s for prolonged periods of time. Continue to monitor on telemetry. * Continue current dose of levothyroxin * Keep off Aricept * If further evidence of symptomatic bradycardia, may need to consider pacemaker Continue telemetry? Yes
[2017-02-19 16:11] VITALS: BP 110/52
[2017-02-20 08:07] VITALS: BP 162/70
--- NOTE | 2017-02-20 13:28 | PN- Cardiology ---
Subjective Subjective: The patient claims of lightheadedness and dizziness. No chest pain. No palpitations. No diaphoresis. No nausea or vomiting. telemetry monitor revealed sinus bradycardia in the 40s while awake, and in the 30s while asleep. Objective Vital Signs and I&Os Vital Signs Date Time Temp Pulse Resp B/P B/P Pulse O2 O2 Flow FiO2 Mean Ox Delivery Rate 02/20 0807 98.6 49 18 162/70 95 Room Air 02/19 1611 98.9 46 16 110/52 93 Room Air Intake & Output 02/20 1600 02/20 0800 02/20 0000 02/19 1600 02/19 0800 02/19 0000 Intake Total 100 600 680 Output Total Balance 100 600 680 Intake, IV 200 200 Intake, Oral 100 400 480 Number 0 Bowel Movements Patient 118 lb Weight Weight Reported by Patient Measurement Method Physical Exam: Gen: NAD HEENT: normal Lungs: clear to auscultation, normal resp. effort Heart: RRR, S1, S2, no murmurs Abdomen: Soft, nontender, no masses Extremities: No clubbing, cyanosis, or edema. Neuro: Alert and oriented x 3, cranial nerves intact Current Medications: Current Medications Sig/Ana Start time Last Medication Dose Route Stop Time Status Admin Acetaminophen 650 MG Q6P PRN 02/19 0115 AC PO Aspirin 81 MG DAILY 02/19 1000 AC 02/20 PO 0908 Brimonidine Tartrate 1 GTT BID 02/19 1000 AC 02/20 OPH 0908 Enoxaparin Sodium 40 MG DAILY 02/19 1000 AC 02/19 SC 0912 Escitalopram Oxalate 10 MG DAILY 02/19 1000 AC 02/20 PO 0908 Ibuprofen 400 MG ONCE ONE 02/19 2045 DC 02/19 PO 02/19 Latanoprost 1 GTT QPM 02/19 2200 AC 02/19 OPH 2206 Levothyroxine Sodium 0.075 MG DAILY AC 02/19 0700 AC 02/20 PO 0703 Sodium Chloride 1,000 ML .Q20H 02/19 0115 DC 02/19 IV 0240 Timolol Maleate 1 GTT BID 02/19 1000 AC 02/19 OPH 0943 Results Last 48 Hrs of Labs/Mics: Laboratory Tests 02/19/17 0630: Anion Gap 9, Estimated GFR > 60, BUN/Creatinine Ratio 14.3, CBC w Diff NO MAN DIFF REQ, RBC 4.15 L, MCV 89.3, MCH 29.1, RDW 13.6, MPV 9.7, Gran % 49.3, Lymphocytes % 28.5, Monocytes % 12.5 H, Eosinophils % 9.0 H, Basophils % 0.7, Absolute Granulocytes 3.0, Absolute Lymphocytes 1.7, Absolute Monocytes 0.8 H, Absolute Eosinophils 0.5, Absolute Basophils 0, PUBS MCHC 32.6 L 02/18/17 1726: Troponin I < 0.01 02/18/17 1505: Urine Color YEL, Urine Clarity CLEAR, Urine pH 7.5, Ur Specific [place] 1.010, Urine Protein NEG, Urine Ketones NEG, Urine Nitrite NEG, Urine Bilirubin NEG, Urine Urobilinogen 0.2, Ur Leukocyte Esterase NEG, Ur Microscopic EXAM NOT REQUIRED, Urine Hemoglobin NEG, Urine Glucose NEG Assessment/Plan Assessment/Plan Assessment: 1. Hypertension 2. Hypothyroidism 3. Dementia 4. History of syncope 5. Symptomatic sinus bradycardia Plan: * The patient remains significantly bradycardic, with heart rates in the 30s and 40s for prolonged periods of time. The bradycardia is symptomatic with lightheadedness and dizziness. * Continue current dose of levothyroxine * Keep off Aricept * Continue to monitor on telemetry for bradycardia * Nothing by mouth after midnight for possible pacemaker placement Continue telemetry? Yes
[2017-02-20 15:51] VITALS: BP 122/78
[2017-02-20 23:00] VITALS: BP 126/72
--- NOTE | 2017-02-21 06:54 | PN- Housestaff ---
Subjective Follow-up For: Abdominal Pain Nausea Bradycardia Tele-Events Since Last Visit: Sinus Bradycardia HR 43-58 HR 39 at 0100 Subjective: Patient seen and examined. She is seen lying flat in bed resting comfortably. She appears to be in no acute distress. She is oriented to person and year, but does not know where she is. She reports feeling hungry and is requesting to eat. She was told that she cannot have breakfast as she may possibly have a surgical procedure later this morning. She otherwise denies any headache, fever, chills, chest pain, palpitations, shortness of breath, nausea, vomiting, diarrhea. Review of Systems Constitutional: Reports: see HPI. Objective Last 24 Hrs of Vital Signs/I&O Vital Signs Date Time Temp Pulse Resp B/P B/P Pulse O2 O2 Flow FiO2 Mean Ox Delivery Rate 02/21 0800 98.5 50 18 140/70 96 Room Air 02/20 2300 97.1 50 18 126/72 96 Room Air 02/20 1551 97.7 50 16 122/78 97 Room Air Intake & Output 02/21 1600 02/21 0800 02/21 0000 Intake Total 100 740 Output Total Balance 100 740 Intake, IV 0 0 Intake, Oral 100 740 Number 0 0 Bowel Movements Physical Exam General Appearance: Alert, Cooperative, No Acute Distress Other Physical Findings: General- well developed, thin elderly woman in no acute distress HEENT- NCAT, PERRL, EOMI, anicteric sclera, moist mucous membranes Chest- S1, S2 w/o m/g/r Lung- CTA bilaterally Abdomen- Soft, nontender, nondistended, bowel sounds intact Neuro- Awake and alert, oriented to person and year not place, CN II - XII grossly intact Ext- normal pulses, no cyanosis/clubbing/edema Current Medications: Current Medications Sig/Ana Start time Last Medication Dose Route Stop Time Status Admin Acetaminophen 650 MG Q6P PRN 02/19 0115 AC PO Aspirin 81 MG DAILY 02/19 1000 DC 02/20 PO 0908 Brimonidine Tartrate 1 GTT BID 02/19 1000 AC 02/21 OPH 1015 Enoxaparin Sodium 40 MG DAILY 02/19 1000 DC 02/19 SC 0912 Escitalopram Oxalate 10 MG DAILY 02/19 1000 AC 02/21 PO 1017 Latanoprost 1 GTT QPM 06/17 2200 AC 02/20 OPH 2124 Levothyroxine Sodium 0.075 MG DAILY AC 02/19 0700 AC 02/21 PO 0551 Loratadine 10 MG ONCE ONE 02/20 1645 DC 02/20 PO 02/20 1646 2123 Timolol Maleate 1 GTT BID 02/19 1000 AC 02/19 OPH 0943 Last 24 Hrs of Lab/Mal Results Last 24 Hrs of Labs/Mics: Laboratory Tests 02/21/17 0630: Anion Gap 6, Estimated GFR > 60, BUN/Creatinine Ratio 18.8, PT 10.7, INR 1.02, APTT 34, CBC w Diff NO MAN DIFF REQ, RBC 4.19 L, MCV 88.3, MCH 29.2, RDW 13.7, MPV 10.4, Gran % 47.8, Lymphocytes % 32.2, Monocytes % 11.8 H, Eosinophils % 7.5 H, Basophils % 0.7, Absolute Granulocytes 2.7, Absolute Lymphocytes 1.8, Absolute Monocytes 0.7 H, Absolute Eosinophils 0.4, Absolute Basophils 0, PUBS MCHC 33.1 Assessment/Plan Assessment: 87 year old woman with past medical history of hypertension, hypothyroidism, dementia and syncope seen for evaluation of abdomina pain and associated nausea. Vitals signs upon initial evaluation were signifcant only for mild bradycardia to the 50's and borderline blood pressures. Initial labs demonstrated normal CBC , Serum chemistries, LFTs; troponins were negative x2, amylase was mildly elevated to 184 (lipase not checked), and thyroid functions tests showing TSH/T4 of 0.34/6.[address] Abddomen pelvis was negative for pancreatitis but did comment on a moderate amount of stool in the large colon with bilateral hydronephrosis with a distended bladder. Patient was admitted to the telemetry floor for further evaluation. #Sinus Bradycardia #Hypertension #Hypothyroidism #Dementia Patient's aricept was held for concern of associated bradycardia when she was placed on the telemetry floor. TSH/T4 levels were borderline low for which her home dose of levothyroxine was increased to 75mcg from her home dose of 50mcg. Patient was found to be persistently bradycardia over the weekend despite these interventions. -Telemetry -Hold CCB/Beta-blockers -Amlodipine 5mg ON HOLD -Hold Aricept -Cardiology following Pain Plan-Acetaminophen Diet-NPO, restart heart healthy diet after DVT PPx-ALPS Code Status-FULL CODE Problem List: 1. Bradycardia Pain Ratin Pain Location: None Pain Goal: Remain pain free Pain Plan: See assessment Tomorrow's Labs & Rationales: None
[2017-02-21 08:00] VITALS: BP 140/70
--- NOTE | 2017-02-21 08:12 | PN- Student ---
MEGHANA KWOK 02/21/17 0811: Subjective Subjective: Pt. is laying down comfortably in bed in no apparent distress. She repeatedly asks the same questions and keeps stating that it is July/August. She states she is hungry and wants to eat. When asked if she had abdominal pain, she stated, "No, I only get stomach pain from time to time because my mind makes it have pain." She denies any constipation or diarrhea. She states her last BM was yesterday. The patient does state that her mind is constantly thinking and has cold intolerance. She stated she got slightly dizzy when she sat up from bed. She states she has increased urinary frequency, but does not experience any pain during urination. Overnight events: SR, SB between 49-58. Night nurse states the pt. wanders. ROS: Denies CP, palpitations, SOB, weakness, tingling, nausea, vomiting. Objective Objective: VS: Temp 98.5, HR 50, RR 18, BP 140/70, O2 96% RA PE: General: Calm, cooperative, in no acute distress. Laughs when unable to answer. Neuro: Alert and Oriented to person. Place=stated her home address, Time= stated it's 2016. Gait is slow, but stable without assistance or assistive devices. CV: RRR, S1 and S2 normal. No mumurs, rubs, or gallops Pulm: Clear to auscultation bilaterally. No wheezes, rales, or rhonchi GI: Normal bowel sounds throughout. Soft, nondistended, nontender, no ascites present, no guarding present. LE: Dry, cool to touch, no edema present. DP and TB 1+ bilaterally. Pertinent labs: 02/18/17, T3=0.90 02/21/17, PT=10.7, INR=1.02, aPTT=34 Lyme=negative for Lyme CT: Mild bilateral hydropnephrosis and hydroureter. Bladder distension suggestive of urinary reflux. Assessment/Plan Assessment: Pt. is an 87 yo female with a past medical history of dementia on aricept, hypothyroidism on levothyroxine, HTN on amlodipine, and a history of syncope presented to the ED with acute abdominal pain, nausea, and bradycardia. Labs are within normal limits. Problem List: 1. Bradycardia, hypothyroidism, hypertension: Hypothyroidism vs medication induced sinus sick syndrome. The pt was admitted for bradycardia and is mildly symptomatic. When getting up, she stated she had a little dizziness upon rising, but resolves after sitting for a couple minutes. This may be due to her bradycardia, but it can also be a benign positional dizziness. The patient presented with a low T3 level at 0.90, which could suggest that her current medication regimen is subtherapeutic. Her Hypothyroidism is a cause of bradycardia and seeing that she has cold intolerance suggests that hypothyroidism can be the cause of her bradycardia. In addition, the patient is taking aricept which can also cause her to be bradycardic. * Possible pacemaker due to her bradycardia: Dr. Evans would want her to follow up with him in a week and decide to place the pacemaker if her bradycardia is symptomatic again. * Follow cardiology consult * Increase levothyroxine from 50mcg to 75 mcg due to low T3 levels * Hold BP meds for now * Follow up with PCP 6-8 weeks for thyroid studies. 2. Dementia * Hold aricept because it can cause bradycardia * Supervision because the patient wander per night nurse 3. DVT prophylaxis * Hold aspirin and Lovenox for possibility of pacemaker procedure. 4. Full Code
[2017-02-21 08:14] LABS: ABSOLUTE BASOPHIL COUNT 0 /CUMM (0.0-0.2); ABSOLUTE EOSINOPHIL COUNT 0.4 /CUMM (0.0-0.7); ABSOLUTE GRANULOCYTE CT 2.7 /CUMM (1.4-6.5); ABSOLUTE LYMPH COUNT 1.8 /CUMM (1.2-3.4); ABSOLUTE MONOCYTE COUNT 0.7 /CUMM (0.10-0.60); BASOPHIL % 0.7 % (0.0-2.0); EOSINOPHIL % 7.5 % (0-5); GRANULOCYTE % 47.8 % (42.2-75.2); MEAN CORPUSCULAR HGB 29.2 PG (27.0-31.0); MEAN CORPUSCULAR HGB CONC 33.1 G/DL (33.0-37.0); MEAN CORPUSCULAR VOLUME 88.3 FL (81.0-99.0); MEAN PLATELET VOLUME 10.4 FL (7.4-10.4); PLATELET COUNT 147 /CUMM (130-400); RBC DISTRIBUTION WIDTH 13.7 % (11.5-14.5); RED BLOOD CELL CT 4.19 /CUMM (4.20-5.40); WHITE BLOOD CELL COUNT 5.7 /CUMM (4.8-10.8)
[2017-02-21 08:17] LABS: PT 10.7 SEC (9.4-12.5); PTT 34 SEC (25-37)
[2017-02-21 16:02] VITALS: BP 120/60
--- NOTE | 2017-02-21 17:16 | PN- Cardiology ---
Subjective Subjective: * Intermittent bradycardia with likely symptoms of lightheadedness although patient is a difficult historian. Objective Vital Signs and I&Os Vital Signs Date Time Temp Pulse Resp B/P B/P Pulse O2 O2 Flow FiO2 Mean Ox Delivery Rate 02/21 1602 98.2 50 20 120/60 97 Room Air 02/21 0800 98.5 50 18 140/70 96 Room Air 02/20 2300 97.1 50 18 126/72 96 Room Air Intake & Output 02/21 1600 02/21 0800 02/21 0000 02/20 1600 02/20 0800 02/20 0000 Intake Total 0 100 740 720 100 600 Output Total Balance 0 100 740 720 100 600 Intake, IV 0 0 200 Intake, Oral 0 100 740 720 100 400 Number 0 0 0 0 Bowel Movements Patient 118 lb Weight Physical Exam: General: WD/ WN female in NAD; awake and responsive HEENT: NC/ AT, PERRL, EOMI Neck: no JVD, no carotid bruit Heart: RRR w/o murmur Lungs: clear bilaterally Abdomen: soft, NT, +BS Extremities: no edema Assessment/Plan Assessment/Plan * This patient has questionable symptomatic bradycardia. We will discharge this patient to home on levothyroxine 75mcg daily and without Aricept. If she remains symptomatic at follow up in a week then we will set up an outpatient pacemaker placement. Continue telemetry? No
[2017-02-21] MEDS ORDERED: SYNTHROID75 MCG PO (17:27)
--- NOTE | 2017-02-21 17:30 | Patient Discharge Instructions ---
Discharge Instructions General Discharge Information Special Instructions: Stop taking Aricept. Your dose of levothyroxine has changed, you have been provided a new prescription. Start taking 75mcg per day. Follow up with Dr. Evans in his office in one week for evaluation of your slow heart rate. Acute Coronary Syndrome Inclusion Criteria At DC or during hospital stay patient has or had the following: ACS DIAGNOSIS No Discharge Core Measures Meds if any: Prescribed or Continued at Discharge Meds if any: NOT Prescribed or Continued at Discharge Congestive Heart Failure Inclusion Criteria At DC or during hospital stay patient has or had the following: CHF DIAGNOSIS No Discharge Core Measures Meds if any: Prescribed or Continued at Discharge Meds if any: NOT Prescribed or Continued at Discharge Cerebrovascular accident Inclusion Criteria At DC or during hospital stay patient has or had the following: CVA/TIA Diagnosis No Discharge Core Measures Meds if any: Prescribed or Continued at Discharge Meds if any: NOT Prescribed or Continued at Discharge Venous thromboembolism Inclusion Criteria VTE Diagnosis No VTE Type NONE VTE Confirmed by (Test) NONE Discharge Core Measures - Per Current guidelines, there needs to be overlap - treatment for the first 5 days of Warfarin therapy. - If discharged on Warfarin prior to 5 days of - overlap therapy, the patient will need to be - assessed for post discharge needs including - *Post discharge parental anticoagulation - *Warfarin and/or parental anticoagulation education - *Follow up date to check INR post discharge At least 5 days overlap therapy as Inpatient No Meds if any: Prescribed or Continued at Discharge Note: Overlap Therapy is Warfarin and Anticoagulant Meds if any: NOT Prescribed or Continued at Discharge
--- NOTE | 2017-02-22 07:10 | PN- Housestaff ---
Subjective Follow-up For: Bradycardia Dementia Tele-Events Since Last Visit: Sinus Bradycardia HR 40's HR 38 @ ~0300 Subjective: Patient seen and examined. She is seen standing up in her room ambulating independently. She appears to be in no acute distress. She reports feeling well and isn't exactly sure why she is in the hospital. She is oriented to person, but when asked where she is she quotes her home address. She denies any fever, chills, chest pain, palpitations, shortness of breath, nausea, vomiting, diarrhea. Review of Systems Constitutional: Reports: see HPI. Objective Last 24 Hrs of Vital Signs/I&O Vital Signs Date Time Temp Pulse Resp B/P B/P Pulse O2 O2 Flow FiO2 Mean Ox Delivery Rate 02/22 0837 97.6 47 20 130/70 95 02/21 1756 Room Air Room Air 02/21 1602 98.2 50 20 120/60 97 Room Air Intake & Output 02/22 1600 02/22 0800 02/22 0000 Intake Total 600 480 480 Output Total Balance 600 480 480 Intake, Oral 600 480 480 Physical Exam General Appearance: Alert, Cooperative, No Acute Distress Other Physical Findings: General- well developed, thin elderly woman in no acute distress HEENT- NCAT, PERRL, EOMI, anicteric sclera, moist mucous membranes Chest- S1, S2 w/o m/g/r Lung- CTA bilaterally Abdomen- Soft, nontender, nondistended, bowel sounds intact Neuro- Awake and alert, oriented to person and year not place, CN II - XII grossly intact Ext- normal pulses, no cyanosis/clubbing/edema Current Medications: Current Medications Sig/Ana Start time Last Medication Dose Route Stop Time Status Admin Acetaminophen 650 MG Q6P PRN 02/19 0115 AC PO Brimonidine Tartrate 1 GTT BID 02/19 1000 AC 02/22 OPH 0828 Escitalopram Oxalate 10 MG DAILY 02/19 1000 AC 02/22 PO 0828 Latanoprost 1 GTT QPM 02/19 2200 AC 02/21 OPH 2100 Levothyroxine Sodium 0.075 MG DAILY AC 02/19 0700 AC 02/22 PO 0645 Timolol Maleate 1 GTT BID 02/19 1000 AC 02/19 OPH 0943 Assessment/Plan Assessment: 87 year old woman with past medical history of hypertension, hypothyroidism, dementia and syncope seen for evaluation of abdomina pain and associated nausea. Vitals signs upon initial evaluation were signifcant only for mild bradycardia to the 50's and borderline blood pressures. Initial labs demonstrated normal CBC , Serum chemistries, LFTs; troponins were negative x2, amylase was mildly elevated to 184 (lipase not checked), and thyroid functions tests showing TSH/T4 of 0.34/6.[address] Abddomen pelvis was negative for pancreatitis but did comment on a moderate amount of stool in the large colon with bilateral hydronephrosis with a distended bladder. Patient was admitted to the telemetry floor for further evaluation. #Sinus Bradycardia #Hypertension #Hypothyroidism #Dementia Patient's aricept was held for concern of associated bradycardia when she was placed on the telemetry floor. TSH/T4 levels were borderline low for which her home dose of levothyroxine was increased to 75mcg from her home dose of 50mcg. Patient was found to be persistently bradycardia over the weekend despite these interventions. Patients daughter (power of construction driver) wants patient to be evaluated by another physcian to discuss her options; in the mean time patient is to be discharged to a short/halfway facility for further care. -Telemetry -Hold CCB/Beta-blockers -Amlodipine 5mg ON HOLD -Hold Aricept due to possibilty of bradycardia -Levothyroixine increased to 75mcg PO Daily -Cardiology following -Outpatient follow up with silviculture teacher for further evaluation of bradycardia -Repeat thyroid function tests in four weeks Pain Plan-Acetaminophen Diet-NPO, restart heart healthy diet after DVT PPx-ALPS Code Status-FULL CODE Problem List: 1. Bradycardia Pain Ratin Pain Location: None Pain Goal: Remain pain free Pain Plan: See assessment Tomorrow's Labs & Rationales: None
--- NOTE | 2017-02-22 07:34 | PN- Student ---
MEGHANA KWOK 02/22/17 0728: Subjective Subjective: Pt. is laying in bed, smiling, in no apparent distress. Repeatedly asks where she is and what happened to her. She denies any dizziness, weakness, breath, chest pain, and abdominal pain. She states she is cold, but not as much as yesterday. Overnight events: Sinuse Kenneth in the 40's. Dropped down to 38 and 39 at night. Objective Objective: VS: Temp 98.2, HR 50, RR 20, BP 120/60, O2 97% RA General: Calm, cooperative. In no apparent distress. Affect is appropriate to situation. Neuro: Alert and oriented to self. Does not know where she is and states it is Tuesday. CV: Regular rhythm. S1 and S2 normal. No mumurs, rubs, or gallops Pulm: Breath sounds clear to auscultation in all 4 quadrants GI: Normal bowel sounds throughout. Soft, nondistended, nontender, no ascites present. LE: Bilateral +1 TB and DP pulses, no edema present. Results Results: Laboratory Tests 02/21/17 0630: Anion Gap 6, Estimated GFR > 60, BUN/Creatinine Ratio 18.8, PT 10.7, INR 1.02, APTT 34, CBC w Diff NO MAN DIFF REQ, RBC 4.19 L, MCV 88.3, MCH 29.2, RDW 13.7, MPV 10.4, Gran % 47.8, Lymphocytes % 32.2, Monocytes % 11.8 H, Eosinophils % 7.5 H, Basophils % 0.7, Absolute Granulocytes 2.7, Absolute Lymphocytes 1.8, Absolute Monocytes 0.7 H, Absolute Eosinophils 0.4, Absolute Basophils 0, PUBS MCHC 33.1 Assessment/Plan Assessment: Pt. is an 87 yo female with a past medical history of dementia on aricept, hypothyroidism on levothyroxine, HTN on amlodipine, and a history of syncope presented to the ED with acute abdominal pain, nausea, and bradycardia. Labs are within normal limits. Problem List: 1. Bradycardia, hypothyroidism, hypertension: Hypothyroidism vs medication induced sinus sick syndrome. The pt was admitted for bradycardia and is mildly symptomatic. When getting up, she stated she had a little dizziness upon rising, but resolves after sitting for a couple minutes. This may be due to her bradycardia, but it can also be a benign positional dizziness. The patient presented with a low T3 level at 0.90, which could suggest that her current medication regimen is subtherapeutic. Her Hypothyroidism is a cause of bradycardia and seeing that she has cold intolerance suggests that hypothyroidism can be the cause of her bradycardia. In addition, the patient is taking aricept which can also cause her to be bradycardic. * Possible pacemaker due to her bradycardia: Dr. Evans would want her to follow up with him in a week if she remains symptomatic. That is when he will set up an outpatient pacemaker. The daughter wants a second opinion at [place]. If unable to, discharge to [facility]. * Follow cardiology consult * Increase levothyroxine from 50mcg to 75 mcg due to low T3 levels * Hold BP meds for now * Follow up with PCP 6-8 weeks for thyroid studies. * She is stable for discharge. 2. Dementia * Hold aricept because it can cause bradycardia * Supervision because the patient wander per night nurse 3. DVT prophylaxis * Hold aspirin and Lovenox for possibility of pacemaker procedure. 4. Full Code
[2017-02-22 08:37] VITALS: BP 130/70
--- NOTE | 2017-02-22 08:40 | PN- Cardiology ---
Subjective Subjective: * Patient is alert with no complaints of lightheadedness or shortness of breath. * Mild hypothyroidism with recent increase in levothyroxine * bradycardia down to 38BPM while asleep Objective Vital Signs and I&Os Vital Signs Date Time Temp Pulse Resp B/P B/P Pulse O2 O2 Flow FiO2 Mean Ox Delivery Rate 02/21 1756 Room Air Room Air 02/21 1602 98.2 50 20 120/60 97 Room Air Intake & Output 02/22 1600 02/22 0800 02/22 0000 02/21 1600 02/21 0800 02/21 0000 Intake Total 480 480 0 100 740 Output Total Balance 480 480 0 100 740 Intake, IV 0 0 Intake, Oral 480 480 0 100 740 Number 0 0 Bowel Movements Patient 118 lb Weight Physical Exam: General: WD/ WN female in NAD; awake and responsive HEENT: NC/ AT, PERRL, EOMI Neck: no JVD, no carotid bruit Heart: RRR w/o murmur Lungs: clear bilaterally Abdomen: soft, NT, +BS Extremities: no edema Assessment/Plan Assessment/Plan * This patient has bradycardia down to 38bpm in the mold clamper hours when asleep. She denies any symptomatic bradycardia, although moderate dementia is noted that makes a history a bit less reliable. She was also noted to be hypothyroid upon admission with a recent increase in her levothyroxine dose. We will recheck her TFT's. A permanent pacemaker is not clearly indicated at this point in time. * The patient's daughter would like a second opinion from a physician at [facility]. We will ask her who she wants and try to facilitate a transfer if we can find an accepting physician. Otherwise we will plan for discharge to a [facility]. Do not restart Aricept as this can cause bradycardia. Continue telemetry? Yes
--- NOTE | 2017-02-22 09:12 | Discharge Summary ---
Visit Information Visit Dates Admission Date: 02/18/17 Discharge Date: 02/22/17 Hospital Course Course Attending Physician: ANGELINE SALGADO PhD,KAMRAN Nieves Primary Care Physician: TONIA SALGADO,FOSTER Alcantar Hospital Course: 87 year old woman with pmh history of hypertension, hypothyroidism, dementia and history of syncope. Brought to ED for abdominal pain and nausea and found to be bradycardiac. On physical exam she is alert, in no acute distress, regular rate, normal S1, S2 , chest clear to auscultation bilaterally with abdominal exam benign and no edema in lower extremities. Labs pertinent for an H&H of 11.8/35.4, white blood cell count of 6000, platelet count 159,000. Serum chemistries revealed a sodium of 139, potassium of 4.1, bicarbonate 27, anion gap of 6, BUN 13 with a creatinine of 0.7. LFTs were unremarkable with an AST/L2 14/33, alkaline phosphatase of 42, troponin first set negative less than 0.01. Thyroid function tests revealed a TSH of 0.34, free T4 of 0.6 with a total 33 which was low at 0.90. Lyme disease antibody titer was done which was 0.13. UA was unremarkable. A CT of the abdomen and pelvis was done for the evaluation of abdominal pain which showed moderate stool throughout the large bowel, no diverticulosis, no evidence of colitis, mild bilateral hydronephrosis and bilateral hydroureter. There are no renal calculi. There is borderline prominence of the pancreas with no evidence of pancreatitis. EKG: sinus bradycardia with HR: 54, MT: 176, no ST-T changes She was admitted to telemetry for further evaluation of bradycardia. The following problems were addressed on this admission: #Symptomatic bradycardia This was thought to be secondary to Aricept versus hypothyroidism. Patient was placed on telemetry when her heart rate did drop down to as low as the 30s while she was asleep. Placement of a pacemaker insertion was not warranted at this time as per the asphalt mixer. Aricept was discontinued upon discharge and she is to follow-up with cardiology as an outpatient. She will need a repeat TFT and her levothyroxine dose was increased to 75 MCG. Of note her Lyme antibody titer was negative #Dementia She is on Aricept which was discontinued as this was thought to cause bradycardia. She should have an outpatient geriatric follow-up. #Hypothyroidism Pending results of her TFTs, her levothyroxine was increased to 75 MCG from 50. She should have a repeat thyroid function tests within the next 4 weeks. #Physical deconditioning She was evaluated by physical therapy and was cleared for home. However patient 's daughter works and is unable to take care of of her mother while home and so requested for the evaluation for long-term placement. She will subsequently be discharged to short-term rehabilitation. Complications: None Allergies: Coded Allergies: No Known Allergies (02/18/17) Significant Procedures: SERVICE DATE: 02/18/17 EXAM TYPE: CAT - CT ABD & PELVIS W IV CONTRAST FINDINGS: LUNG BASES: The visualized lung bases are unremarkable. LIVER, GALLBLADDER, AND BILIARY TREE: The liver is normal in size, shape, and attenuation. No focal hepatic lesion or biliary ductal dilatation is present. The gallbladder is unremarkable with no evidence of radiopaque gallstones, gallbladder wall thickening, or obvious pericholecystic inflammatory changes. PANCREAS: Borderline prominence of the main pancreatic duct at 3 mm without focal pancreatic mass. No evidence of pancreatitis. SPLEEN: Unremarkable. ADRENAL GLANDS: Unremarkable. KIDNEYS AND URETERS: There is mild uniform cortical thinning bilaterally. The collecting systems are full bilaterally consistent with mild hydronephrosis. This is a new finding compared to the prior exam. Both ureters are mildly prominent. No ureteral calculi. The bladder is distended. Suspect reflux. BLADDER: Distended with urine. No mass or calculi. GASTROINTESTINAL TRACT: The visualized esophagus is normal. The stomach is decompressed. The small bowel is normal in caliber. Mesenteric vessels enhance normally without adenopathy. The terminal ileum is normal in appearance. Normal appendix in the right lower quadrant. Moderate fecal residue throughout the colon. Redundant sigmoid colon. No diverticulosis. No diverticulitis. No free air. No free fluid. ABDOMINAL WALL: Small stable umbilical hernia. Postsurgical changes in the lower infraumbilical abdominal wall. LYMPH NODES: Normal. VASCULAR: Moderate atherosclerotic peripheral vascular disease and a normal caliber abdominal aorta. Circumaortic left renal vein, an anatomic variant. No retroperitoneal collection. PELVIC VISCERA: The patient is status post hysterectomy. No adnexal masses. No free fluid or lymphadenopathy. OSSEOUS STRUCTURES: Degenerative spine disease. No compression deformity. No malalignment. IMPRESSION: Moderate stool throughout the large bowel. No diverticulosis. No evidence of colitis. Mild bilateral hydronephrosis and bilateral hydroureter. The bladder is distended and this may represent reflux. No renal calculi. Borderline prominence of the pancreatic duct. No evidence for pancreatitis. Disposition Summary Disposition Principal Diagnosis: Bradycardia 2/2 aricept Additional Diagnosis: Hypertension Hypothyroidism Dementia Discharge Disposition: SNF Discharge Instructions General Discharge Information Code Status: Full Code Patient's Diet: Heart healthy Patient's Activity: As tolerated Follow-Up Instructions/Appts: Please stop taking Aricept. Your dose of levothyroxine has changed, you have been provided a new prescription. Start taking 75mcg per day. Follow up with Dr. Evans in his office in one week for evaluation of your slow heart rate. Medications at Discharge Discharge Medications: Stop taking the following medications: Levothyroxine Sodium (Levoxyl) 50 MCG TABLET ORAL DAILY BEFORE BREAKFAST Donepezil HCl (Aricept) 10 MG TABLET ORAL Every night Continue taking these medications: Amlodipine Besylate (Norvasc) 5 MG TABLET 1 Tablet ORAL DAILY Comments: NOT GIVEN Latanoprost (Xalatan) 0.005 % DROPS 1 Drop In the eye Every night Comments: GIVEN 02/21/17 @ 2100 Meloxicam (Mobic) 15 MG TABLET 1 Tablet ORAL DAILY as needed for PAIN Qty = 10 Comments: NOT GIVEN Escitalopram Oxalate (Escitalopram Oxalate) 20 MG TABLET 1 Tablet ORAL DAILY Qty = 30 Comments: GIVEN 02/22/17 @ 0828 Brimonidine Tartrate/Timolol (Combigan Eye Drops) 0.2 %-0.5 % DROPS 1 DROP OPHTHALMIC TWICE DAILY Qty = 10 Comments: GIVEN 02/19/17 @ 0943 Start taking the following new medications: Levothyroxine Sodium (Synthroid) 75 MCG TABLET 0.075 Milligram ORAL DAILY BEFORE BREAKFAST Qty = 30 No Refills Comments: GIVEN 02/22/17 @ 0645 Copies To: TONIA SALGADO,FOSTER Alcantar; ANGELINE SALGADO PhD,KAMRAN Nieves Attending MD Review Statement Documenting Attending: ANGELINE SALGADO PhD,KAMRAN Nieves
[2017-02-22 16:03] VITALS: BP 120/70
[2017-02-22 16:22] VITALS: BP 120/70
--- NOTE | 2017-02-22 18:39 | NUR ---
PT D/C'D TO SNF ([facility]) AT 1835 ON 02/22/17. PT IS AT BASELINE. A/CONFUSSED. AMBULATES INDEPENDENTLY WITH SUPERVISION. IV LINE REMOVED. TELE MONITOR REMOVED. DAUGHTER AT BEDSIDE. REPORT GIVEN TO NURSE SARAH AT [facility]. PT TRANSPORTED IN AMBULANCE. ALL BELONGINGS TAKEN WITH DAUGHTER.
== END 2017-02-22 18:25 | DRG 309 ==
LOC: ERH 11:07 → 1NO 19:44 → ERHI 19:44 → ENRESERV 02-19 08:54 → ENTRNSPT 02-19 10:09 → 1NO 02-19 10:27 → CMPTRNSPT 02-19 10:42 → 1NO 02-19 11:09 → ENPENDDIS 02-22 16:08 → 1NO 02-22 18:25
PROVIDERS: Emergency Medicine; Internal Medicine Adolescent Medicine; Student in an Organized Health Care Education/Training Program; ADMIT Internal Medicine Interventional Cardiology
DX: R00.1 Bradycardia, unspecified (principal); N13.30 Unspecified hydronephrosis; F03.90 Unspecified dementia, unspecified severity, without behavioral disturbance, psychotic disturbance, mood disturbance, and anxiety; T44.1X5A Adverse effect of other parasympathomimetics [cholinergics], initial encounter; E03.9 Hypothyroidism, unspecified; I10 Essential (primary) hypertension; R11.0 Nausea
CPT/HCPCS: 1NP; 86618; ERO; 36415; 74177; 81003; 82436; 93005; 93010; 97116-GO; 97161-GP; J1650; J3490